=== PATIENT | female | born 1960 | race Caucasian/White ===

== ENCOUNTER 2021-09-30 08:48 | Emergency (ER) | payer MEDICARE, OTHER ==
[~2021-09-30] VITALS: Ht 162.6 cm; Wt 72.1 kg
[2021-09-30] MEDS ORDERED: OLME40TA12 PO (08:56)
[2021-09-30] MEDS ORDERED: OMEP20TA5 PO (08:56)
[2021-09-30] MEDS ORDERED: AMLO-212 PO (08:56)
--- NOTE | 2021-09-30 09:13 | NUR ---
PT IS IN ROOM #2A. DR DAVIDSON EVALUATED TH PT.
--- NOTE | 2021-09-30 10:24 | NUR ---
PT WAS D/C'd TO HOME. D/C INSTRUCTIONS GIVEN TO THE PT BY DR DAVIDSON.
[2021-09-30 10:25] VITALS: BP 137/81
== END 2021-09-30 10:36 | disposition home or self-care (01) ==
LOC: ER 08:51
DX: S00.83XA Contusion of other part of head, initial encounter (principal); W01.0XXA Fall on same level from slipping, tripping and stumbling without subsequent striking against object, initial encounter; Y92.89 Other specified places as the place of occurrence of the external cause; Y99.8 Other external cause status; Z86.718 Personal history of other venous thrombosis and embolism; Z79.01 Long term (current) use of anticoagulants; K21.9 Gastro-esophageal reflux disease without esophagitis; Z98.1 Arthrodesis status
CPT/HCPCS: 70450; 72125; A4663